=== PATIENT | female | born 1930 | race Caucasian/White ===

== ENCOUNTER 2018-09-25 13:00 | Inpatient (IN) | payer MEDICARE, OTHER ==
[2018-09-25 12:44] LABS: BASO % 0.5 % (0-6); EOS % 3.1 % (0-6); HEMOGLOBIN 12.8 gm/dl (11.6-16.0); LYMPH % 33.5 % (16-45); MEAN CELL VOLUME 87.9 fl (81-97); MEAN CORPUSCULAR HEMOGLOBIN 28.1 pg (27-33); MEAN PLATELET VOLUME 8.9 fl (7.4-10.4); MONO % 9.9 % (0-9); PLATELET COUNT 333 K/uL (130-400); RED BLOOD COUNT 4.55 M/uL (3.80-5.40); RED CELL DISTRIBUTION WIDTH 13.6 % (11.5-14.5); WHITE BLOOD COUNT W/O DIFF 7.9 K/uL (4.2-12.2)
[2018-09-25 13:57] LABS: URINE APPEARANCE CLOUDY; URINE BILIRUBIN NEGATIVE (NEGATIVE); URINE BLOOD NEGATIVE (NEGATIVE); URINE COLOR YELLOW; URINE GLUCOSE (UA) NEGATIVE (NEGATIVE); URINE KETONE NEGATIVE (NEGATIVE); URINE LEUKOCYTE ESTERASE SMALL (NEGATIVE); URINE NITRITE NEGATIVE (NEGATIVE); URINE PROTEIN NEGATIVE (NEGATIVE); URINE UROBILINOGEN 0.2 E.U./dL (0.20 - 1.00)
[2018-09-25 14:08] LABS: URINE BACTERIA NONE SEEN; URINE RBC NONE SEEN (NONE SEEN)
[2018-10-02] MEDS ORDERED: FAMOTIDINE 20MG TABLET PO ONE (06:00)
[2018-10-02] MEDS ORDERED: VANCOMYCIN HCL 1,000 MG in DEXTROSE 5 % IN WATER 250 ML IVPB ONE ×2 (06:00)
[2018-10-02] MEDS ORDERED: CELECOXIB 100 MG CAPSULE PO ONE (06:00)
[2018-10-02] MEDS ORDERED: MECLIZINE 25 MG TABLET PO ONE (06:00)
[2018-10-02] MEDS ORDERED: METOCLOPRAMIDE 10 MG TABLET PO ONE (06:00)
[2018-10-02] MEDS ORDERED: CEFAZOLIN 2 Gram 2 GM/50 ML BAG IVPB ONE (06:00)
[2018-10-02 07:21] LABS: ABO GROUP B; RH TYPE POSITIVE
[2018-10-02 07:33] LABS: ANTIBODY SCREEN NEGATIVE (NEGATIVE)
[2018-10-02] MEDS ORDERED: ACETAMINOPHEN W/ CODEINE 300MG/60MG TABLET PO PRN (10:45)
[2018-10-02] MEDS ORDERED: BISACODYL 10 MG SUPP RC PRN (10:45)
[2018-10-02] MEDS ORDERED: AL HYDROX/MAG HYDROX 30ML UD PO PRN (10:45)
[2018-10-02] MEDS ORDERED: ZOLPIDEM TARTRATE 5 MG TABLET PO PRN (10:45)
[2018-10-02] MEDS ORDERED: KETOROLAC 30 MG/ML VIAL IVP PRN ×2 (10:45)
[2018-10-02] MEDS ORDERED: ONDANSETRON HCL IV 4 MG/2 ML VIAL IVP PRN (10:45)
[2018-10-02] MEDS ORDERED: ACETAMINOPHEN 325 MG TAB PO PRN (10:45)
[2018-10-02] MEDS ORDERED: NALOXONE 0.4 MG/1 ML VIAL IVP PRN (10:45)
[2018-10-02] MEDS ORDERED: HYDROMORPHONE HCL 2 MG/ML VIAL IM PRN (10:45)
[2018-10-02] MEDS ORDERED: HYDROCODONE/APAP 10/325 TABLET PO PRN (10:45)
[2018-10-02] MEDS ORDERED: TRAMADOL HCL 50 MG TABLET PO PRN (10:45)
[2018-10-02] MEDS ORDERED: DIPHENHYDRAMINE HCL 25 MG CAPSULE PO PRN (10:45)
[2018-10-02] MEDS ORDERED: MAGNESIUM HYDROXIDE 30 ML UDC PO PRN (10:45)
[2018-10-02] MEDS ORDERED: POTASSIUM CHLORIDE/D5-0.9%NACL 20 MEQ/1,000 ML BAG IV SCH (11:30)
[2018-10-02] MEDS ORDERED: BUPIVACAINE 0.5% W/EPI MPF 30 ML VIAL IVP ONE (12:37)
[2018-10-02] MEDS ORDERED: TRANEXAMIC ACID 1,000 MG/10 ML ML IV ONE (12:37)
[2018-10-02] MEDS: 0.9 % SODIUM CHLORIDE 1000ML 1,000 ML IV PRN ×2 (13:56→22:28)
[2018-10-02] MEDS ORDERED: PROPOFOL 10 MG/ML VIAL IV ONE (14:00)
[2018-10-02] MEDS ORDERED: MIDAZOLAM HCL 2MG/2ML VIAL IV ONE (14:00)
[2018-10-02] MEDS ORDERED: KETAMINE HCL 100MG/1ML VIAL INJ ONE (14:00)
[2018-10-02] MEDS ORDERED: ROPIVACAINE HCL (NAROPIN) /PF 5MG/ML 20ML VIAL IV ONE (15:58)
[2018-10-02] MEDS ORDERED: DEXAMETHASONE 4 MG/ML 1ML VIAL IVP ONE (15:58)
[2018-10-02] MEDS ORDERED: 0.9 % SODIUM CHLORIDE 10 ML VIAL IVP ONE (15:58)
--- NOTE | 2018-10-02 16:37 | Rehab Evaluation ---
Patient Information - Patient Information Diagnosis: L hip DJD Ordered Treatment: PT Evaluate and Treat Status: Initial Evaluation Surgery: Yes (THR L) Date of Surgery: 10/02/18 Past Medical/Surgical Hx: PAST MEDICAL/SURGICAL HISTORY Past Surgical History CARDIAC STENTS X'S 2015 PMH - Respiratory Hx Respiratory Disorders Yes Hx Pneumonia Yes: MANY YEARS AGO PMH - Cardiovascular Hx Cardiovascular Disorders Yes Hx Abnormal EKG Yes Hx Cardiac Catheterization Yes Hx Heart Attack Yes Hx Hypertension Yes: ON MEDS GOOD CONTROL Hx Coronary Stent Yes: X'S 2015 Exercise Tolerance Fair PMH - Neuro Hx Neurological Disorders Yes Comment: SHORT TERM MEMORY LOSS . SON IS BUSINESS MGR PMH - GI Hx Gastrointestinal Disorders No PMH - Hx Genitourinary Disorders No PMH - Endocrine Hx Endocrine Disorders Yes Hx Thyroid Disease Yes: ON MEDS HYPO PMH - Musculoskeletal Hx Musculoskeletal Disorders Yes Hx Arthritis Yes: LEFT HIP PMH - Psych Hx Psychiatric Problems Yes Hx Depression Yes: AT TIMES RECENTLY HAD MENTALLY HANDI CAPPED SON PUT IN PENITENTIARY Comment: PT STATES SHE BLAKE A LOT PMH - Hematology/Oncology Hx Hematology/Oncology No Disorders Social History: Detail (The patient lives alone in a mobile home with a ramp at the enterance. The bathroom is equipped with a walk in shower with grab bars, shower bench and hand held shower and an elevated toilet with handles surrounding toilet seat. The patient has a two wheeled walker, 3 wheeled walker and standard cane.) Precautions: [place], Fall, Other (L THR precautions) - Time With Patient Total Time Spent With Patient (Min): 30 Treatment Procedures: Detail (Initial Evaluation, gait training) Subjective Information - Subjective Information Per Patient (The patient had minimal complaints of pain and did not rate her pain using 0-10 pain scale.) Objective Data - Mental Status Patient Orientation: Oriented x3 - Visual Perception Appears within normal limits for therapeutic activities - ROM Not within normal limits (The patient's L hip was within total hip precautions. All other LE AROM was WNL.) - Strength/Tone Not within normal limits (The patient's L LE strength was not tested s/p surgery however was functional ie: patient was able to lift L LE into bed. The patient's R LE was WNL.) - Bed Mobility Needs Assist (The patient required minimal PA to lift L LE with sit to and from supine. The patient was independent with scooting up in bed.) - Transfers Independent (The patient was independent with sit to and from stand transfer.) - Balance Balance Sitting: Good Balance Standing: Good - Gait Detail (The patient ambulated with front wheeled walker a distance of 60 feet x 1 WBAT on L LE with supervision for safety only.) Therapy Assessment - Therapy Assessment Detail (The patient required minimal PA with bed mobility, supervision only with ambulation and was independent with transfers. Feel the patient will progress well with mobiity.) Patient Education - Patient Education Teaching Topic: Precautions (The patient's THR precautions were reviewed. The patient was able to name one precaution out of three without verbal cues.) Response: Return Demonstration Teaching Method: Discussion, Handout Teaching Recipient: Patient Barriers To Learning: Age Related Problem List - Problem List Physical Therapy Problem List: Detail (1) Decreased L LE strength 2) Assistance with bed mobility 3) Impaired ambulation s/p surgery) Goals - Goals Physical Therapy Goals: 1) The patient will be independent with all bed mobility. 2) The patient will be independent with THR HEP and demonstrate good understanding of THR precautions. 3) The patient will ambulate independently with appropriate assistive device household distances. Prognosis - Prognosis Good Plan - Plan Physical Therapy Plan: PT 1-2 sessions for gait training, instruction in THR HEP and bed mobility.
[2018-10-02] MEDS: CEFAZOLIN 2 Gram 2 GM/50 ML BAG IVPB SCH (17:15)
[2018-10-02] MEDS: HYDROCODONE/APAP 10/325 TABLET PO PRN (19:39)
[2018-10-02] MEDS: DOCUSATE SODIUM 100 MG CAPSULE PO SCH (22:21)
[2018-10-02] MEDS: METOPROLOL TART 25 MG TABLET PO SCH (22:21)
[2018-10-02] MEDS: ATORVASTATIN 20 MG TABLET PO SCH (22:21)
[2018-10-02] MEDS: HYDROCODONE/APAP 5/325MG TABLET PO PRN (23:53)
[2018-10-03] MEDS: CEFAZOLIN 2 Gram 2 GM/50 ML BAG IVPB SCH ×2 (00:55→09:20)
[2018-10-03] MEDS: HYDROCODONE/APAP 5/325MG TABLET PO PRN ×2 (05:11→22:11)
[2018-10-03 06:49] LABS: HEMOGLOBIN 10.2 gm/dl (11.6-16.0)
[2018-10-03] MEDS: LEVOTHYROXINE SODIUM 50 MCG TABLET PO SCH (06:52)
[2018-10-03 07:01] LABS: BLOOD UREA NITROGEN 20 mg/dL (8-23); CREATININE 0.9 mg/dL (0.5-0.9); EST GLOMERULAR FILTRATION RATE > 60 mL/min; GLUCOSE,RANDOM 115 mg/dL (74-109)
[2018-10-03] MEDS ORDERED: TRANEXAMIC ACID 1,000 MG/10 ML ML IV ONE (08:23)
[2018-10-03] MEDS ORDERED: 0.9 % SODIUM CHLORIDE 10 ML VIAL IVP ONE (08:23)
[2018-10-03] MEDS: FERROUS SULFATE 325 MG TAB PO SCH (09:21)
[2018-10-03] MEDS: METOPROLOL TART 25 MG TABLET PO SCH ×2 (09:21→22:11)
[2018-10-03] MEDS: ASPIRIN 81 MG TABEC PO SCH (09:21)
[2018-10-03] MEDS: DOCUSATE SODIUM 100 MG CAPSULE PO SCH ×2 (09:22→22:12)
[2018-10-03] MEDS: RIVAROXABAN 10 MG TABLET PO SCH (09:22)
--- NOTE | 2018-10-03 10:27 | Physical Therapy Tx Note ---
Physical Therapy Tx Note - Treatment Note Tolerated: Good Total Time Spent With Patient: 25 Physical Therapy Tx Note: Detail (The patient was in bed when PT arrived and disoriented to place. The patient had minimal complaints of L groin region pain. The patient's son was present for PT treatment. The patient's THR HEP was reviewed. The patient completed the following: supine heelslides, gluteal sets, ankle pumps, quad sets, hamstring sets and hip abduction supine all 3 to 5 reps. The patient required minimal PA sliding L LE with supine to sit and was independent with upper body. The patient was independent with sit to and from stand transfer with verbal cues to push up from surface. The patient ambulated WBAT on the L LE with front wheeled walker with supervision for safety only a distance of 200 feet x 1. The patient is doing well with ambulation and requires only minimal PA with bed mobility. Supervision with ambulation/ transfers is recommended due to patient's confusion.) Physical Therapy Problem List: Detail (1) Decreased L LE strength 2) Assistance with bed mobility 3) Impaired ambulation s/p surgery) Physical Therapy Goals: 1) The patient will be independent with all bed mobility. 2) The patient will be independent with THR HEP and demonstrate good understanding of THR precautions. 3) The patient will ambulate independently with appropriate assistive device household distances. Physical Therapy Plan: PT will monitor patient's status with mobility.
[2018-10-03] MEDS: ACETAMINOPHEN W/ CODEINE 300MG/60MG TABLET PO PRN ×2 (10:50→18:52)
--- NOTE | 2018-10-03 11:14 | Rehab Evaluation ---
Patient Information - Patient Information Diagnosis: L hip DJD Ordered Treatment: OT Evaluate and Treat Status: Initial Evaluation Surgery: Yes (THR L) Date of Surgery: 10/02/18 Past Medical/Surgical Hx: PAST MEDICAL/SURGICAL HISTORY Past Surgical History CARDIAC STENTS X'S 3 2015 PMH - Respiratory Hx Respiratory Disorders Yes Hx Pneumonia Yes: MANY YEARS AGO PMH - Cardiovascular Hx Cardiovascular Disorders Yes Hx Abnormal EKG Yes Hx Cardiac Catheterization Yes Hx Heart Attack Yes Hx Hypertension Yes: ON MEDS GOOD CONTROL Hx Coronary Stent Yes: X'S 3 2015 Exercise Tolerance Fair PMH - Neuro Hx Neurological Disorders Yes Comment: SHORT TERM MEMORY LOSS . 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 The bathroom is equipped with a walk in shower with grab bars, shower bench and hand held shower and an elevated toilet with handles surrounding toilet seat. The patient has a two wheeled walker, 3 wheeled walker , standard cane, globe cleaner, sock aid and long shoe horn. Her son and daughter in law live next door and assist her with home mgmt, laundry and self care tasks as needed. She is Ind with light meal prep.) Precautions: [place], Fall, Other (L THR precautions) - Time With Patient Total Time Spent With Patient (Min): 45 Treatment Procedures: Detail (OT eval low complexity) Subjective Information - Subjective Information Per Patient Objective Data - Pain Pain Present: Yes (01/23) - Mental Status Patient Orientation: Oriented x3 - Visual Perception Appears within normal limits for therapeutic activities - ROM Within normal limits (Antonio UE AROM WNL) - Strength/Tone Within normal limits (Antonio UE Strength WNl) - Coordination Appears within normal limits for therapeutic activities - Transfers Independent (Ind with sit to stand from elevated chair height.) - Balance Balance Sitting: Good Balance Standing: Fair - Sensation Intact - ADL's/IADL's Detail (Pt educated and able to demonstrate learning of modified LE dressing techniques using globe cleaner, sock aid and long shoe horn while maintaining total hip precautions with min verbal cueing. Pt able to doff slipper socks and don pants, socks and tennis shoes with adaptive equipment and verbal cues for technique.) Therapy Assessment - Therapy Assessment Detail (Pt requires verbal cueing for use of adaptive equipment for modified LE dressing techniques while maintaining total hip precautions. Pt would benefit from short IP rehab stay to ensure safety and Ind with self cares and meal prep tasks at home.) Problem List - Problem List Physical Therapy Problem List: Detail (1) Decreased L LE strength 2) Assistance with bed mobility 3) Impaired ambulation s/p surgery) Occupational Therapy Problem List: Detail (1. Pt requires min verbal cues for modified LE dressing techiques. 2. Assess kitchen safety and Ind.) Goals - Goals Physical Therapy Goals: 1) The patient will be independent with all bed mobility. 2) The patient will be independent with THR HEP and demonstrate good understanding of THR precautions. 3) The patient will ambulate independently with appropriate assistive device household distances. Occupational Therapy Goals: 1. Pt will be Ind with self care skills using adaptive equipment. 2. Pt will be safe and Ind with simple meal prep activity. Prognosis - Prognosis Good Plan - Plan Physical Therapy Plan: PT will monitor patient's status with mobility. Occupational Therapy Plan: Pt will benefit from short IP rehab stay. OT will monitor and see pt 1-2 times per week until discharge.
--- NOTE | 2018-10-03 12:22 | RADIOLOGY REPORT ---
EXAM: CHEST, SINGLE VIEW HISTORY: REHAB PLACEMENT. TECHNIQUE: A single frontal view of the chest was obtained. Comparison: None. FINDINGS: The cardiac silhouette is within normal size limits. The thoracic aorta is calcified and tortuous. No focal pulmonary consolidation. No definable pleural fluid collection or visible pneumothorax. Diffuse thoracic spondylosis is noted. Surgical anchors are present within the right humeral head. IMPRESSION: NO ACUTE LUNG FINDINGS. JOB NUMBER: [id number] MTDD
[2018-10-03] MEDS: ATORVASTATIN 20 MG TABLET PO SCH (22:12)
[2018-10-04] MEDS: HYDROCODONE/APAP 5/325MG TABLET PO PRN ×2 (03:36→21:21)
[2018-10-04 06:40] LABS: HEMATOCRIT 29.7 % (35.0-47.0); HEMOGLOBIN 9.4 gm/dl (11.6-16.0)
[2018-10-04 06:52] LABS: BLOOD UREA NITROGEN 22 mg/dL (8-23); CREATININE 0.9 mg/dL (0.5-0.9); EST GLOMERULAR FILTRATION RATE > 60 mL/min; GLUCOSE,RANDOM 85 mg/dL (74-109)
[2018-10-04] MEDS: LEVOTHYROXINE SODIUM 50 MCG TABLET PO SCH (07:01)
[2018-10-04] MEDS: FERROUS SULFATE 325 MG TAB PO SCH (10:12)
[2018-10-04] MEDS: DOCUSATE SODIUM 100 MG CAPSULE PO SCH ×2 (10:12→21:08)
[2018-10-04] MEDS: RIVAROXABAN 10 MG TABLET PO SCH (10:12)
[2018-10-04] MEDS: METOPROLOL TART 25 MG TABLET PO SCH ×2 (10:12→21:13)
[2018-10-04] MEDS: ASPIRIN 81 MG TABEC PO SCH (10:12)
[2018-10-04] MEDS: ACETAMINOPHEN W/ CODEINE 300MG/60MG TABLET PO PRN ×2 (10:15→15:58)
--- NOTE | 2018-10-04 11:16 | Physical Therapy Tx Note ---
Physical Therapy Tx Note - Treatment Note Tolerated: Good Total Time Spent With Patient: 30 Physical Therapy Tx Note: Detail (Patient was seated in chair upon MARKETING PROGRAM MANAGER arrival. Patient reports left knee, thigh, and hip sore today. Patient transferred sit to and from stand SBA x1. Patient ambulated 254 feet with wheeled walker SBA x1. Patient performed the following exercises x10 reps each seated in chair : LAQ, ankle pumps, hamstring sets, glut squeezes, isometric hip abduction, isometric hip adduction, marching, and hip abduction ROM. Patient tolerated treatment well. Patient displays decreased strength and endurance with LAQ, seated marching, and hamstring sets. Patient reports left hip sore after treatment. Patient was left seated in chair with cold pack on hip and call light within reach.) Physical Therapy Problem List: Detail (1) Decreased L LE strength 2) Assistance with bed mobility 3) Impaired ambulation s/p surgery) Physical Therapy Goals: 1) The patient will be independent with all bed mobility. 2) The patient will be independent with THR HEP and demonstrate good understanding of THR precautions. 3) The patient will ambulate independently with appropriate assistive device household distances. Prognosis: Good Physical Therapy Plan: PT will monitor patient's status with mobility.
[2018-10-04] MEDS: ATORVASTATIN 20 MG TABLET PO SCH (21:08)
[2018-10-05] MEDS: HYDROCODONE/APAP 10/325 TABLET PO PRN ×2 (02:00→06:21)
[2018-10-05] MEDS: LEVOTHYROXINE SODIUM 50 MCG TABLET PO SCH (06:19)
--- NOTE | 2018-10-05 08:41 | Discharge Summary ---
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 She was admitted after left total hip arthroplasty. Postoperatively, she did very well. She had a little bit of confusion thought secondary to medications but otherwise did very well. Her discharge hemoglobin was above 10. Her hospital course was unremarkable. Plan is to transfer her to rehab. She will be given a total of 5 days of Xarelto, so she will need 2 additional days when she gets to the facility and then she should take a regular aspirin daily for 30 days. She will be given Tylenol 3 for pain. Sutures should be removed 2 weeks postoperatively, so her sutures should be removed on 10/16/2018. She should follow up in my office in 4 weeks. FINAL DIAGNOSIS: End-stage arthrosis of the left hip. OPERATIONS AND PROCEDURES: Cementless left total hip arthroplasty. DISCHARGE CONDITION: Good. VIRAL
[2018-10-05] MEDS: ASPIRIN 81 MG TABEC PO SCH (09:16)
[2018-10-05] MEDS: FERROUS SULFATE 325 MG TAB PO SCH (09:16)
[2018-10-05] MEDS: METOPROLOL TART 25 MG TABLET PO SCH (09:16)
[2018-10-05] MEDS: DOCUSATE SODIUM 100 MG CAPSULE PO SCH (09:17)
--- NOTE | 2018-10-05 14:00 | Operative Note ---
DATE OF SURGERY: 10/02/2018 Surgeon: Jayro Leonardo M.D. PREOPERATIVE DIAGNOSIS: Endstage arthrosis of the left hip. POSTOPERATIVE DIAGNOSIS: Endstage arthrosis of the left hip. OPERATION: Cementless left total hip arthroplasty using [employer] components, a size 54 no hole REFLEXION cup, a 35 degree offset, 32 mm diameter liner, and a size 14 high offset cementless ECHELON stem with a +4 32 mm diameter [place] Chrome head. Anesthesia: Spinal. PREPARATION: Chloraprep. INDIVIDUAL CONSIDERATIONS: None. PROCEDURE: The patient was taken to the operating room and placed supine on the operating room table. She had a successful induction of spinal anesthetic. She was then placed on her side, left side up and her left hip and leg were prepped and draped in the usual fashion. The patient had direct posterior approach to the hip. Sharp dissection carried down through the skin and subcutaneous tissue. Small veins were coagulated with the Bovie. The tensor gluteal fascia was opened along the entire length of the incision and deep retractors were placed. Short external rotators were identified in the piriformis fossa and removed, exposing the posterior capsule. Posterior capsulectomy was performed. The hip was dislocated posteriorly. The patient had a femoral neck cut about a fingerbreadth above the lesser troch, the head was deformed with large marginal osteophytes. After making the femoral neck cut, a rim capsulectomy was performed. Starting with a 45 mm reamer to medialize the medial wall, I reamed to the introitus to a 53 for a 54 cup, I slightly under-reamed the 52. After thorough irrigation, I impacted a size 54 no hole REFLEXION cup in 20 degrees in forward flexion and 40 degrees in abduction, using the extra-articular alignment guide and bony landmarks. There was solid cementless fixation. A center cap screw was placed and then I impacted a 35 degree offset and a 32 mm diameter liner with the offset posteriorly inferiorly. This gave an excellent stable acetabular construct and this was packed off. The proximal femur was delivered into the wound. A box-cutting osteotome was used to remove the proximal capsule bone. Then reaming was done to a size 14 and barely started feeling cortex at 12, I broached to a size 14 with anteversion dialed into about 20 degrees. After calcar reaming, I was able to place a high offset trial with a +4 trial, was seen to fit perfectly. I went ahead and removed the trial, thoroughly irrigated out the femoral canal in the wound, then impacted a size 14 high offset cementless ECHELON stem with solid cementless fixation and solid calcar contact. Again, trialed with a +4 head, full anterior stability with full extension and external rotation, full posterior stability, even flexed up and internally rotated 90 degrees. I removed the trial, irrigated everything out and I tried the Joseph Taper, impacted a +4 [place] Chrome head, reduced the hip with similar stability. Hemostasis was obtained with a Bovie. Sciatica was inspected and found to be completely intact. The tensor gluteal fascia was then closed with a running #2 Quill, I did mix a gram of tranexamic acid with 30 mL of saline and placed it deep in the fascia. The subq was closed in layers of running 0 Quill, the skin was closed in xochilt. I infiltrated the skin and subcutaneous tissue with 30 mL of 0.5% Marcaine with epinephrine and a sterile bulky compressive GINNY-type dressing was applied. The patient tolerated the procedure well. The needle and sponge counts were correct. Estimated blood loss was 200 mL. She was taken back to recovery in good condition. There were no complications. We will check the hemoglobin in the morning. VIRAL
== END 2018-10-05 09:20 | DRG 470 ==
LOC: MEDSURG 10-02 06:47
PROVIDERS: ADMIT Orthopaedic Surgery; ATTEND Orthopaedic Surgery
PROC: 0SRB06A Replacement of Left Hip Joint with Oxidized Zirconium on Polyethylene Synthetic Substitute, Uncemented, Open Approach (ICD-10-PCS; principal; 2018-10-02 09:00)
DX: M16.12 Unilateral primary osteoarthritis, left hip (principal); I10 Essential (primary) hypertension; E78.00 Pure hypercholesterolemia, unspecified; I25.2 Old myocardial infarction; Z95.5 Presence of coronary angioplasty implant and graft; E03.9 Hypothyroidism, unspecified
CPT/HCPCS: 71045; 76942; 80048; 81001; 85014; 85018; 85025; 86850; 86900; 86901; 97110; 97530; C1776; J3490; J7060

== ENCOUNTER 2019-04-23 06:21 | Inpatient (IN) | payer MEDICARE, OTHER ==
[~2019-04-23 06:21] MED LIST: CEFAZOLIN 2 Gram 2 GM/50 ML BAG IVPB ONE; CELECOXIB 100 MG CAPSULE PO ONE; FAMOTIDINE 20MG TABLET PO ONE; MECLIZINE 25 MG TABLET PO ONE; METOCLOPRAMIDE 10 MG TABLET PO ONE; VANCOMYCIN 1GM/200ML PREMIX 1 GM/200 ML PIGGYBACK IVPB ONE
[2019-04-23 06:42] LABS: URINE APPEARANCE CLEAR; URINE BILIRUBIN NEGATIVE (NEGATIVE); URINE BLOOD NEGATIVE (NEGATIVE); URINE COLOR YELLOW; URINE GLUCOSE (UA) NEGATIVE (NEGATIVE); URINE KETONE NEGATIVE (NEGATIVE); URINE LEUKOCYTE ESTERASE SMALL (NEGATIVE); URINE NITRITE NEGATIVE (NEGATIVE); URINE PROTEIN NEGATIVE (NEGATIVE); URINE UROBILINOGEN 0.2 E.U./dL (0.20 - 1.00)
[2019-04-23 06:50] LABS: URINE RBC 0 - 2 (NONE SEEN)
[2019-04-23 06:51] LABS: URINE MUCUS LIGHT
[2019-04-23 06:52] LABS: URINE BACTERIA 2+
[2019-04-23] MEDS ORDERED: 0.9 % SODIUM CHLORIDE 1000ML 1,000 ML IV ONE ×2 (07:15→09:30)
[2019-04-23 08:04] LABS: ABO GROUP B; ANTIBODY SCREEN NEGATIVE (NEGATIVE); RH TYPE POSITIVE
[2019-04-23] MEDS ORDERED: BUPIVACAINE 0.5% W/EPI MPF 30 ML VIAL SQ ONE (09:15)
[2019-04-23] MEDS ORDERED: TRANEXAMIC ACID 1,000 MG/10 ML ML IU ONE (09:16)
[2019-04-23] MEDS ORDERED: TRANEXAMIC ACID 1,000 MG/10 ML ML IV ONE (09:16)
[2019-04-23] MEDS ORDERED: SODIUM CHLORIDE 0.9% IV ONE (09:30)
[2019-04-23] MEDS ORDERED: GENTAMICIN SULFATE IV ONE (09:30)
[2019-04-23] MEDS ORDERED: NALOXONE 0.4 MG/1 ML VIAL IVP PRN (10:24)
[2019-04-23] MEDS ORDERED: BISACODYL 10 MG SUPP RC PRN (10:24)
[2019-04-23] MEDS ORDERED: HYDROMORPHONE HCL 2 MG/ML VIAL IM PRN (10:24)
[2019-04-23] MEDS ORDERED: HYDROCODONE/APAP 10/325 TABLET PO PRN ×2 (10:24)
[2019-04-23] MEDS ORDERED: DIPHENHYDRAMINE HCL 25 MG CAPSULE PO PRN (10:24)
[2019-04-23] MEDS ORDERED: MAGNESIUM HYDROXIDE 30 ML UDC PO PRN (10:24)
[2019-04-23] MEDS ORDERED: ONDANSETRON HCL IV 4 MG/2 ML VIAL IVP PRN (10:24)
[2019-04-23] MEDS ORDERED: ZOLPIDEM TARTRATE 5 MG TABLET PO PRN (10:24)
[2019-04-23] MEDS ORDERED: KETOROLAC 30 MG/ML VIAL IVP PRN (10:24)
[2019-04-23] MEDS ORDERED: ACETAMINOPHEN 325 MG TAB PO PRN (10:24)
[2019-04-23] MEDS ORDERED: AL HYDROX/MAG HYDROX 30ML UD PO PRN (10:24)
[2019-04-23] MEDS ORDERED: TRAMADOL HCL 50 MG TABLET PO PRN (10:24)
[2019-04-23] MEDS ORDERED: FLU VAC QS 2019-20 (INPT, 6MO+) 60MCG/0.5ML IM ONE (11:34)
[2019-04-23] MEDS: PREDNISOLONE OPTH SCH ×3 (13:51→20:40)
[2019-04-23] MEDS: GATIFLOXACIN OPTH SCH ×3 (13:51→20:40)
[2019-04-23] MEDS: BROMFENAC OPTH SCH ×3 (13:51→20:40)
[2019-04-23] MEDS: CEFAZOLIN 2 Gram 2 GM/50 ML BAG IVPB SCH ×3 (13:52→22:29)
--- NOTE | 2019-04-23 13:57 | Rehab Evaluation ---
Patient Information - Patient Information Diagnosis: R Hip DJD Ordered Treatment: PT Evaluate and Treat Status: Initial Evaluation Surgery: Yes Date of Surgery: 04/23/19 Past Medical/Surgical Hx: PAST MEDICAL/SURGICAL HISTORY Surgery to Affected Area? Yes Recent Surgery? Past Surgical History BILAT CATARACT EXTRACTION LTHA 10-02-18 CARDIAC STENTS X'S 2015 PMH - Respiratory Hx Respiratory Disorders Yes Hx Pneumonia Yes: MANY YEARS AGO PMH - Cardiovascular Hx Cardiovascular Disorders Yes Hx Abnormal EKG Yes Hx Cardiac Catheterization Yes Hx Heart Attack Yes Hx Hypertension Yes: ON MEDS GOOD CONTROL Hx Coronary Stent Yes: X'S 2015 Exercise Tolerance Fair PMH - Neuro Hx Neurological Disorders Yes Comment: SHORT TERM MEMORY LOSS . 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 She stated that she does her own laundry and sweeping, but splits some of the other household tasks such as cooking.) Social History: Detail (Patient lives alone in a mobile home with a ramp to enter. In the bathroom there is a walk-in shower with grab bars and a hand-held shower head. She also has a shower bench. There is an elevated toilet seat with grab bars. The patient states that she is going to rehab following her inpatient stay and upon returning home her family will be able to help her. She has a 4- wheeled walker, a standard walker, and a cane available to her.) Precautions: [place], Fall, Other (Total hip precautions on R LE) - Time With Patient Total Time Spent With Patient (Min): 25 Treatment Procedures: Detail (Initial evaluation; low complexity Patient was left in bed with the call light and bedside table within reach. The nursing staff was notified of her position.) Subjective Information - Subjective Information Per Patient (Patient reports that she is starting to have some pain in her R hip.) Objective Data - Pain Pain Present: Yes - Mental Status Patient Orientation: Oriented x3 - Visual Perception Appears within normal limits for therapeutic activities - ROM Not within normal limits (R hip ROM limited as expected s/p R MO. R knee and ankle, and L LE ROM is within normal limits for functional activities.) - Strength/Tone Not within normal limits (R hip strength limited as expected s/p R [place]. R knee and ankle, and L LE strength is within functional limits.) - Coordination Appears within normal limits for therapeutic activities - Bed Mobility Independent (Patient is independent in moving up and down in bed.) - Transfers Needs Assist (Patient was independent in moving from supine to sit, sit to stand, and stand to sit. She needed minimal assist to move the R LE back into bed when transferring from sit to supine.) - Balance Balance Sitting: Good Balance Standing: Good - Sensation Intact - Gait Detail (Patient was unable to ambulate at the time of the evaluation. Upon standing her right leg buckled and the patient reported that she felt unstable to try and walk.) Therapy Assessment - Therapy Assessment Detail (Patient presents with strength and ROM loss, and was unable to ambulate at the time of the evaluation that make her a good candidate for inpatient therapy services. The patient seems fearful of ambulating, and gait training will help to increase her confidence before being discharged to an inpatient therapy unit.) Problem List - Problem List Physical Therapy Problem List: Detail (1. Decreased R hip ROM 2. Decreased R hip strength 3. Pain in R hip 4. Gait abnormalities) Goals - Goals Physical Therapy Goals: 1. Patient will be independent and demonstrate correct form of HEP exercises to help increase strength and ROM needed for ADLs. 2. Patient will be able to ambulate household distances with a standard walker with supervision to be able to be discharged to an inpatient therapy setting. 3. Patient will be able to correctly state [place] precautions. 4. Patient will be able to ambulate over a ramp for 10 feet to be able to get in and out of her home. Plan - Plan Physical Therapy Plan: Patient will be seen 1-2x per day, M-F, for gait training, stair training, therapeutic exercise, therapeutic activities, and HEP instruction.
[2019-04-23] MEDS ORDERED: 0.9 % SODIUM CHLORIDE 10 ML VIAL IVP ONE (14:28)
[2019-04-23] MEDS ORDERED: DEXAMETHASONE 4 MG/ML 1ML VIAL IVP ONE (14:28)
[2019-04-23] MEDS ORDERED: ROPIVACAINE HCL (NAROPIN) /PF 5MG/ML 20ML VIAL IV ONE (14:28)
[2019-04-23] MEDS: POTASSIUM CHLORIDE/D5-0.9%NACL 20 MEQ/1,000 ML BAG IV SCH ×2 (14:32→20:05)
[2019-04-23] MEDS ORDERED: EPHEDRINE SULFATE 50 MG/ML ML IV ONE (14:41)
[2019-04-23] MEDS ORDERED: GLYCOPYRROLATE 0.2 MG/ML ML IV ONE (14:41)
[2019-04-23] MEDS ORDERED: PROPOFOL 10 MG/ML VIAL IV ONE (14:41)
[2019-04-23] MEDS ORDERED: LIDOCAINE 2% MDV (20MG/ML) 20ML VIAL IV ONE (14:41)
[2019-04-23] MEDS ORDERED: MIDAZOLAM HCL 2MG/2ML VIAL IV ONE (14:41)
[2019-04-23] MEDS: ACETAMINOPHEN W/ CODEINE 300MG/60MG TABLET PO PRN (16:15)
[2019-04-23] MEDS: PHENOL SORE THROAT SPRAY 177 ML BTL MM PRN (20:49)
[2019-04-23] MEDS: DOCUSATE SODIUM 100 MG CAPSULE PO SCH (21:29)
[2019-04-23] MEDS: METOPROLOL TART 25 MG TABLET PO SCH (21:29)
[2019-04-23] MEDS: ATORVASTATIN 20 MG TABLET PO SCH (21:29)
[2019-04-24] MEDS: POTASSIUM CHLORIDE/D5-0.9%NACL 20 MEQ/1,000 ML BAG IV SCH ×3 (05:40→18:19)
[2019-04-24] MEDS: PHENOL SORE THROAT SPRAY 177 ML BTL MM PRN (06:22)
[2019-04-24] MEDS: LEVOTHYROXINE SODIUM 50 MCG TABLET PO SCH (06:22)
[2019-04-24 06:51] LABS: HEMATOCRIT 30.1 % (35.0-47.0); HEMOGLOBIN 9.4 gm/dl (11.6-16.0)
--- NOTE | 2019-04-24 07:21 | Operative Note ---
DATE OF SURGERY: 04/23/2019 PREOPERATIVE DIAGNOSIS: End-stage arthrosis of the right hip. POSTOPERATIVE DIAGNOSIS: End-stage arthrosis of the right hip. OPERATION: Cementless right total hip arthroplasty using [employer] components with a size 54 no-hole Reflection cup, 35-degree offset 32 mm diameter liner, a size 14 high-offset Alleene stem with a +4 32 mm diameter cobalt chrome head. STAFF SURGEON: Jayro Leonardo MD ANESTHESIA: Spinal. PREPARATION: Chloraprep. INDIVIDUAL CONSIDERATIONS: None. PROCEDURE: The patient was taken to the operating room, placed supine on the operating room table. She had a successful induction of spinal anesthetic. She was then placed on her side right side up, and her right leg and hip were prepped and draped in the usual fashion. The patient had direct posterior approach to the hip. Sharp dissection carried down through skin and subcutaneous tissues. Small veins were coagulated with a Bovie. The tensor gluteal fascia was opened along the entire length of the incision, and deep retractors were placed. Short external rotators were identified, piriformis fossa removed. This exposed the posterior capsule. Posterior capsulectomy was performed. Hip was dislocated posteriorly. She had large marginal osteophytes and had a bit of exposed bone and a large posterior osteophyte in the acetabulum. Femoral neck cut was then made freehand with an oscillating saw. A rim capsulectomy was then performed. Starting with a 45 mm reamer to medialize to the medial wall, I reamed to the introitus, a 53 for a 54 cup, which matched the other side. After thorough irrigation, I impacted a size 54 no-hole Reflection cup in 20 degrees of forward flexion and 40 degrees of abduction using the extraarticular alignment guide and bony landmarks. There was solid cementless fixation. I placed a center cap screw, and after irrigation, I was impacted a 35-degree offset 32 mm diameter liner with the offset posteriorly and inferiorly. This gave an excellent stable acetabular construct, and this was packed off. The proximal femur was delivered into the wound, and box cutting osteotome was used to remove the proximal metaphyseal bone. Mid stem reaming was done to a size 14, I started feeling cortex between 12-13. I broached to a 14, dialed anteversion in to about 20 degrees, which was the most I could get given her natural anteversion angle. I calcar reamed with a +4 trial. There was excellent stability. The trial was removed and after thorough irrigation, I went ahead and impacted a size 14 high-offset cementless Alleene stem with solid cementless fixation, solid calcar contact. Again trial with a +4 and this had full stability. Removed the trial, irrigated it out, dried the Gabe taper, impacted a +4 32 mm diameter cobalt chrome head and reduced the hip. Solid stability, full stability in extension with extension and external rotation. Full posterior stability with full flexion and internal rotation even at 90 degrees. After irrigation, hemostasis was obtained with a Bovie. The sciatic nerve was inspected and found to be completely intact. The tensor gluteal fascia was then closed with a running #2 quill. Prior to this, I did place 30 mL of saline mixed with 1 g of tranexamic acid. After closing the fascia, the subcu was closed in layers with running 0 quill, skin was closed with xochilt. The skin and subsequent were infiltrated with 30 mL of 0.5% Marcaine with epinephrine. Sterile bulky compressive GINNY-type dressing was applied. The patient tolerated the procedure well. Needle and sponge counts were correct. Estimated blood loss was 400 mL. We will check a hemoglobin in the morning. There were no complications. [facility]ITAL[facility]ed[facility]
[2019-04-24] MEDS: PREDNISOLONE OPTH SCH ×4 (08:16→21:02)
[2019-04-24] MEDS: BROMFENAC OPTH SCH ×4 (08:16→21:02)
[2019-04-24] MEDS: GATIFLOXACIN OPTH SCH ×4 (08:16→21:02)
[2019-04-24] MEDS: ASPIRIN 81 MG TABEC PO SCH (09:10)
[2019-04-24] MEDS: METOPROLOL TART 25 MG TABLET PO SCH ×3 (09:10→21:04)
[2019-04-24] MEDS: DOCUSATE SODIUM 100 MG CAPSULE PO SCH ×3 (09:10→21:04)
[2019-04-24] MEDS: RIVAROXABAN 10 MG TABLET PO SCH (09:11)
[2019-04-24] MEDS: ESCITALOPRAM 10 MG TABLET PO SCH (09:11)
[2019-04-24] MEDS: FERROUS SULFATE 325 MG TAB PO SCH (09:12)
[2019-04-24] MEDS ORDERED: CEFAZOLIN 2 Gram 2 GM/50 ML BAG IVPB SCH (09:15)
--- NOTE | 2019-04-24 10:33 | Physical Therapy Tx Note ---
Physical Therapy Tx Note - Treatment Note Tolerated: Good Total Time Spent With Patient: 25 Physical Therapy Tx Note: Detail (The patient was up in a chair when PT arrived. The patient ambulated with standard walker 260 feet x 1 with supervision for safety and verbal cues for proper placement of walker R LE WBAT. The patient completed the following THR HEP supine hip abduction, gluteal sets, hamstring sets, quad sets,ankle pumps and heel slides. The patient required verbal cues to recall all THR precautions. The patient did correctly follow THR precautions functionally. Will see the patient for another session for gait training on ramp and or stairs. The patient was left in bed with bed alarm on and call light in place.) Physical Therapy Problem List: Detail (1. Decreased R hip ROM 2. Decreased R hip strength 3. Pain in R hip 4. Gait abnormalities) Physical Therapy Goals: 1. Patient will be independent and demonstrate correct form of HEP exercises to help increase strength and ROM needed for ADLs. (GOAL M ET). 2. Patient will be able to ambulate household distances with a standard walker with supervision to be able to be discharged to an inpatient therapy setting.(GOAL MET). 3. Patient will be able to correctly state [place] precautions. 4. Patient will be able to ambulate over a ramp for 10 feet to be able to get in and out of her home. Physical Therapy Plan: Patient will be seen 1-2x per day, M-F, for gait training, stair training, therapeutic exercise, therapeutic activities, and HEP instruction.
--- NOTE | 2019-04-24 11:29 | Rehab Evaluation ---
Patient Information - Patient Information Diagnosis: R Hip DJD Ordered Treatment: OT Evaluate and Treat Status: Initial Evaluation Surgery: Yes Date of Surgery: 04/23/19 Past Medical/Surgical Hx: PAST MEDICAL/SURGICAL HISTORY Surgery to Affected Area? Yes Recent Surgery? Past Surgical History BILAT CATARACT EXTRACTION LTHA 10-02-18 CARDIAC STENTS X'S 2015 PMH - Respiratory Hx Respiratory Disorders Yes Hx Pneumonia Yes: MANY YEARS AGO PMH - Cardiovascular Hx Cardiovascular Disorders Yes Hx Abnormal EKG Yes Hx Cardiac Catheterization Yes Hx Heart Attack Yes Hx Hypertension Yes: ON MEDS GOOD CONTROL Hx Coronary Stent Yes: X'S 2015 Exercise Tolerance Fair PMH - Neuro Hx Neurological Disorders Yes Comment: SHORT TERM MEMORY LOSS . SON IS COMMERCIAL FISHER[employer] PMH - GI Hx Gastrointestinal Disorders No PMH - Hx Genitourinary Disorders No PMH - Endocrine Hx Endocrine Disorders Yes Hx Thyroid Disease Yes: ON MEDS HYPO PMH - Musculoskeletal Hx Musculoskeletal Disorders Yes Hx Arthritis Yes: RIGHT HIP PMH - Psych Hx Psychiatric Problems Yes Hx Depression Yes: AT TIMES RECENTLY HAD MENTALLY HANDI CAPPED SON PUT IN SKILLED NURSING Comment: PT STATES SHE BLAKE A LOT PMH - Hematology/Oncology Hx Hematology/Oncology No Disorders Premorbid Status: Detail (Patient lives near her son, and his family helps her with costing analyst. She stated that she does her own laundry and sweeping, but has assist with meal prep and heavy house work.) Social History: Detail (Patient lives alone in a mobile home with a ramp to enter. In the bathroom there is a walk-in shower with grab bars and a hand-held shower head. She also has a shower bench. There is an elevated toilet seat with grab bars. The patient states that she is going to rehab following her inpatient stay and upon returning home her family will be able to help her. She has a 4- wheeled walker, a standard walker, and a cane available as well as a bowling pin refinisher, sock aid and long shoe horn.) Precautions: [place], Fall, Other (Total hip precautions on R LE) - Time With Patient Total Time Spent With Patient (Min): 35 Treatment Procedures: Detail (OT eval low complexity) Subjective Information - Subjective Information Per Patient Objective Data - Pain Pain Present: Yes (08/26) - Mental Status Patient Orientation: Oriented x3 (Pt overall oriented although she does become confused about location at times.) - Visual Perception Appears within normal limits for therapeutic activities - ROM Within normal limits (Antonio UE AROM WNL) - Strength/Tone Within normal limits (Antonio UE strength WNL) - Coordination Appears within normal limits for therapeutic activities - Bed Mobility Independent (Ind with supine to sit) - Transfers Independent (Ind with sit to stand from EOB) - Balance Balance Sitting: Good Balance Standing: Good - Sensation Intact - Gait Detail (Pt ambulating in room with standard walker and supervision) - ADL's/IADL's Detail (Pt requires verbal cues for total hip precaution recall but she is able to maintain precautions during functional activities without cues. Pt reports she has adaptive equipment and is familiar with how to use it. She was able to doff and don slipper socks using sock aid with verbal cues as well as don pants with use of bowling pin refinisher Indly. Pt was short of breath with dressing task.) Therapy Assessment - Therapy Assessment Detail (Pt would benefit from short rehab stay to ensure follow through with hip precautions and to address higher level ADLs/IADLs.) Problem List - Problem List Physical Therapy Problem List: Detail (1. Decreased R hip ROM 2. Decreased R hip strength 3. Pain in R hip 4. Gait abnormalities) Occupational Therapy Problem List: Detail (No current IP OT problems identified.) Goals - Goals Physical Therapy Goals: 1. Patient will be independent and demonstrate correct form of HEP exercises to help increase strength and ROM needed for ADLs. (GOAL MET). 2. Patient will be able to ambulate household distances with a standard walker with supervision to be able to be discharged to an inpatient therapy setting.(GOAL MET). 3. Patient will be able to correctly state [place] precautions. 4. Patient will be able to ambulate over a ramp for 10 feet to be able to get in and out of her home. Occupational Therapy Goals: No IP OT goals identified. Prognosis - Prognosis Good Plan - Plan Physical Therapy Plan: Patient will be seen 1-2x per day, M-, for gait training, stair training, therapeutic exercise, therapeutic activities, and HEP instruction. Occupational Therapy Plan: No further IP OT recommended. Pt will be transferring to Rehab facility on Monday.
[2019-04-24] MEDS: ACETAMINOPHEN W/ CODEINE 300MG/60MG TABLET PO PRN ×2 (15:29→19:40)
[2019-04-24] MEDS: ATORVASTATIN 20 MG TABLET PO SCH ×2 (19:40→21:05)
[2019-04-25] MEDS: ACETAMINOPHEN W/ CODEINE 300MG/60MG TABLET PO PRN ×4 (03:28→21:40)
[2019-04-25] MEDS: LEVOTHYROXINE SODIUM 50 MCG TABLET PO SCH (06:21)
[2019-04-25 06:35] LABS: HEMATOCRIT 28.5 % (35.0-47.0)
[2019-04-25 06:46] LABS: BLOOD UREA NITROGEN 20 mg/dL (8-23); CREATININE 0.8 mg/dL (0.5-0.9); EST GLOMERULAR FILTRATION RATE > 60 mL/min; GLUCOSE,RANDOM 106 mg/dL (74-109)
[2019-04-25] MEDS: BROMFENAC OPTH SCH ×4 (08:42→19:59)
[2019-04-25] MEDS: GATIFLOXACIN OPTH SCH ×4 (08:42→19:59)
[2019-04-25] MEDS: PREDNISOLONE OPTH SCH ×4 (08:42→19:59)
[2019-04-25] MEDS: METOPROLOL TART 25 MG TABLET PO SCH ×2 (09:44→21:40)
[2019-04-25] MEDS: DOCUSATE SODIUM 100 MG CAPSULE PO SCH ×2 (09:44→21:40)
[2019-04-25] MEDS: ASPIRIN 81 MG TABEC PO SCH (09:44)
[2019-04-25] MEDS: FERROUS SULFATE 325 MG TAB PO SCH (09:45)
[2019-04-25] MEDS: RIVAROXABAN 10 MG TABLET PO SCH (09:45)
[2019-04-25] MEDS: ESCITALOPRAM 10 MG TABLET PO SCH (09:45)
--- NOTE | 2019-04-25 10:39 | Physical Therapy Tx Note ---
Physical Therapy Tx Note - Treatment Note Tolerated: Fair Total Time Spent With Patient: 30 Physical Therapy Tx Note: Detail (Patient was sleeping in bed reclined upon AVIATION MAINTENANCE INSTRUCTOR arrival. Patient was very emotional, stating she's not doing well. Patient states she's depressed. Patient transferred supine to sit mod assist x1. Patient transferred sit to and from stand CGA x1. Patient ambulated 13 feet x2 CGA x1. Patient transferred sit to and from stand CGA x1. Patient performed the following exercises seated in chair x10 reps each: ankle pumps, glut squeezes, LAQ, marching, isometric hamstring sets, isometric hip abduction, hip adductor squeezes, and hip abduction ROM. Patient tolerated treatment well. Patient declined further ambulation, ambulation on ramp, or stairs. Patient required verbal cueing for hand placement with sit to and from stand transfers. Patient was left seated in chair with call light within reach.) Physical Therapy Problem List: Detail (1. Decreased R hip ROM 2. Decreased R hip strength 3. Pain in R hip 4. Gait abnormalities) Physical Therapy Goals: 1. Patient will be independent and demonstrate correct form of HEP exercises to help increase strength and ROM needed for ADLs. (GOAL MET). 2. Patient will be able to ambulate household distances with a standard walker with supervision to be able to be discharged to an inpatient therapy setting.(GOAL MET). 3. Patient will be able to correctly state [place] precautions. 4. Patient will be able to ambulate over a ramp for 10 feet to be able to get in and out of her home. Prognosis: Good Physical Therapy Plan: Anticipate pt discharge to rehab facility tomorrow.
[2019-04-25] MEDS: ATORVASTATIN 20 MG TABLET PO SCH (21:40)
[2019-04-26] MEDS: ACETAMINOPHEN W/ CODEINE 300MG/60MG TABLET PO PRN ×2 (03:21→07:25)
[2019-04-26] MEDS: LEVOTHYROXINE SODIUM 50 MCG TABLET PO SCH (07:24)
[2019-04-26] MEDS: PREDNISOLONE OPTH SCH (07:24)
[2019-04-26] MEDS: BROMFENAC OPTH SCH (07:24)
[2019-04-26] MEDS: GATIFLOXACIN OPTH SCH (07:24)
--- NOTE | 2019-04-26 08:57 | Discharge Summary ---
DATE OF DISCHARGE: 04/26/2019 HISTORY: Lois is a delightful 88-year-old female who present with end stage arthrosis of her right hip. She was admitted after right total hip arthroplasty. Postoperatively, she did well. Her hospital course has been unremarkable. Her discharge hemoglobin was 9 and she did not require transfusion. The plan is to transfer to a rehab facility in [place]. Visiting nurse will remove her sutures two weeks postoperatively. She needs five total days of Xarelto for DVT prophylaxis which means she will need two additional days at the facility and then followed up by thirty days of one regular aspirin daily. She will be given Tylenol 4 for pain. She will follow- up in my office in four weeks. FINAL DIAGNOSIS/PRIMARY DIAGNOSIS: End stage arthrosis of the right hip. SECONDARY DIAGNOSIS: Operative blood loss anemia. OPERATIONS AND PROCEDURE: Cementless right total hip arthroplasty. JOB NUMBER: [id number] MTDD
[2019-04-26] MEDS: DOCUSATE SODIUM 100 MG CAPSULE PO SCH (09:17)
[2019-04-26] MEDS: FERROUS SULFATE 325 MG TAB PO SCH (09:17)
[2019-04-26] MEDS: RIVAROXABAN 10 MG TABLET PO SCH (09:17)
[2019-04-26] MEDS: ASPIRIN 81 MG TABEC PO SCH (09:17)
[2019-04-26] MEDS: METOPROLOL TART 25 MG TABLET PO SCH (09:17)
[2019-04-26] MEDS: ESCITALOPRAM 10 MG TABLET PO SCH (09:17)
== END 2019-04-26 10:01 | DRG 470 ==
LOC: MEDSURG 06:21
PROVIDERS: ADMIT Orthopaedic Surgery; ATTEND Orthopaedic Surgery
PROC: 0SR906A Replacement of Right Hip Joint with Oxidized Zirconium on Polyethylene Synthetic Substitute, Uncemented, Open Approach (ICD-10-PCS; principal; 2019-04-23 08:30)
DX: M16.11 Unilateral primary osteoarthritis, right hip (principal); I10 Essential (primary) hypertension; E78.00 Pure hypercholesterolemia, unspecified; I25.2 Old myocardial infarction; E03.9 Hypothyroidism, unspecified; Z95.5 Presence of coronary angioplasty implant and graft; Z23 Encounter for immunization
CPT/HCPCS: 76942; 80048; 81001; 82310; 85014; 85018; 86850; 86900; 86901; 90686; C1776; J1885; J3370; J3480; J7030